=== PATIENT | male | born 2005 | race Caucasian/White ===

== ENCOUNTER 2024-09-08 13:29 | Inpatient (IN) | payer SELFPAY ==
[2024-09-08] MEDS ORDERED: Ondansetron PF 4 MG/2 ML Vial IVP PRN (16:07)
[2024-09-08] MEDS ORDERED: Senokot S 8.6-50 MG TAB PO PRN (16:07)
[2024-09-08] MEDS ORDERED: Ipratropium/Albuterol 3 ML NEB NEB PRN (16:10)
[2024-09-08 16:52] VITALS: BMI 21.4
[2024-09-08] MEDS: Sodium Chloride 0.9% 1,000 ML IV SCH (20:04)
[2024-09-09] MEDS: Morphine 2 MG/ML VIAL SLOW IVP PRN (04:12)
[2024-09-09 05:03] LABS: #Basophils 0.03 10x3/uL (0.0-0.2); %Basophils 0.3 % (0.0-1.0); %Eosinophils 7.3 % (0.0-10.0); %Lymphocytes 31.8 % (28.0-48.0); %Monocytes 7.8 % (0.0-4.0); %Neutrophils 52.3 % (31.0-61.0); Hematocrit 45.2 % (42.0-52.0); Hemoglobin 15.4 g/dL (14.0-18.0); Mean Corpuscular HGB CONC 34.1 g/dL (32.0-36.0); Mean Corpuscular Hemoglobin 29.8 pg (25.0-35.0); Mean Corpuscular Volume 87.4 fL (78.0-98.0); Mean Platelet Volume 9.2 fL (7.4-10.4); Platelet Count 326 10x3/uL (130-400); RBC Distribution Width 13.2 % (11.5-14.5); Red Blood Cell (RBC) Count 5.17 mill/uL (4.00-5.20)
[2024-09-09 05:19] LABS: Anion Gap 14 mmol/L (10-20); BUN (Urea Nitrogen) 11 mg/dL (8.4-21.0); Calc. Creatinine Clearance 110 mL/min (70-130); Calcium 8.8 mg/dL (7.8-10.44); Carbon Dioxide 26 mmol/L (22-29); Chloride 104 mmol/L (98-107); Estimated GFR 114; Glucose 85 mg/dL (70-105); Potassium 4.7 mmol/L (3.5-5.1); Sodium 139 mmol/L (136-145)
[2024-09-09] MEDS ORDERED: Ketorolac Tromethamine 30 MG (1 mL) VIAL IVP PRN (08:14)
[2024-09-09] MEDS ORDERED: Calcium Carbonate 500 MG ChewTAB PO PRN (08:14)
[2024-09-09] MEDS: Guaifenesin DM 100-10/5 ML UDCUP PO PRN (08:23)
[2024-09-09] MEDS: Acetaminophen 325 MG TAB PO PRN (08:23)
[2024-09-09 12:14] VITALS: BP 120/68; TEMP 97.8
== END 2024-09-09 18:40 | disposition home or self-care (01) | DRG 200 ==
LOC: OBS 16:03 → OBSVTOIN 17:10
PROVIDERS: ADMIT Hospitalist; ATTEND Internal Medicine
DX: J98.2 Interstitial emphysema (principal); J93.11 Primary spontaneous pneumothorax; F41.9 Anxiety disorder, unspecified; J45.909 Unspecified asthma, uncomplicated; F90.9 Attention-deficit hyperactivity disorder, unspecified type
CPT/HCPCS: 36415; 71045; 80048; 85025; J2272